=== PATIENT | female | born 2000 | race Caucasian/White ===

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

== ENCOUNTER 2020-12-10 18:56 | Emergency (ER) | payer OTHER, SELFPAY ==
[2020-12-10 19:20] VITALS: BP 144/83; PULSE 117; RESP 20; TEMP 36.9; O2SAT 96; BMI 47.5
[2020-12-10 19:49] LABS: UTC Strep Screen (Rapid) Positive (Negative)
--- NOTE | 2020-12-10 19:49 | HMH.EDUTC ---
[facility] [place] Clinical Impression: Strep throat Disposition: Home, Self-Care Condition on Discharge: Good Instructions: DI for Strep Throat Additional Instructions: Drink plenty of fluids. Take tylenol or ibuprofen for pain or fever. Take the medications as directed. Follow up with your regular doctor. GO TO THE ER FOR ANY WORSENING SYMPTOMS Prescriptions: Brompheniramine/Pseudoephed/Dm [Bromfed Dm Cough Syrup] 5 ml PO Q6HP PRN #240 syrup PRN Reason: Cough Transmission Status: Received by [id number] predniSONE [Deltasone 10mg tablet] 10 mg PO BID 3 Days #6 tab Transmission Status: Received by [id number] Azithromycin [Z-Regino 250mg Tab*] 250 mg PO UD DOSE PK #6 tab Transmission Status: Received by [id number] Referrals: Shawn Ureña APRN [Primary Care Provider] - Forms: Work/School Release Time of Disposition: 20:04 Medical Decision Making - Medical Records Medical records reviewed: No: I reviewed the patient's medical records. - Foster Inquiry Pt receiving controlled substance: No Vital Signs: 12/10/20 19:20 12/10/20 19:57 Temperature 98.4 F 98.4 F Temperature Source Oral Pulse Rate 117 H Pulse Rate [Right Brachial] 117 H Respiratory Rate 20 20 Blood Pressure 144/83 H Blood Pressure [Right Arm] 144/83 H Blood Pressure Mean [Right Arm] 103 Blood Pressure Source [Right Arm] Automatic Cuff Blood Pressure Position [Right Arm] Sitting 02 Sat by Pulse Oximetry 96 Oxygen Delivery Method Room Air - Lab Data Lab results reviewed: Yes: I reviewed the patient's lab results. Lab Results 12/10/20 19:48: Strep Scn [facility] Positive A Orders (Tests/Meds): ED MEDICATIONS Discontinued Medications Generic Name Dose Route Start Last Admin Trade Name Freq PRN Reason Stop Dose Admin Azithromycin 500 mg 12/10/20 19:52 12/10/20 19:56 Azithromycin 250mg Tablet PO 12/10/20 19:53 500 mg ONCE ONE Administration Protocol Prednisone 20 mg 12/10/20 19:52 12/10/20 19:56 Prednisone 20mg Tab PO 12/10/20 19:53 20 mg ONCE ONE Administration [facility] [place] - General Stated complaint: Sore Throat, runny nose body aches Time Seen by Provider: 12/10/20 19:49 Mode of Arrival: Ambulatory Source of Information: Patient Limitations: No Limitations Description of Symptoms (Recalled from Triage Doc. by RN): PATIENT C/O SORE THROAT, SWOLLEN TONSILS, HEADACHE, BODY ACHES, COUGH AND SNEEZING X 2-3 DAYS HEENT Symptoms (Recalled from RN notes): Yes Resp Symptoms (Recalled from RN notes): Yes Skin Symptoms (Recalled from RN notes): No MS Symptoms (Recalled from RN notes): No Functional Status (Recalled from RN notes): WNL - History of Present Illness Provider Complaint: She c/o sore throat for the past 2 days. She has a history of getting strep throat easily. - Related Data Home Medications Medication Instructions Recorded Confirmed Sertraline HCl [Zoloft 100mg 100 mg PO DAILY 12/10/20 12/10/20 tablet] Previous Rx's Medication Instructions Recorded Azithromycin [Z-Regino 250mg Tab*] 250 mg PO UD DOSE PK #6 tab 12/10/20 Brompheniramine/Pseudoephed/Dm 5 ml PO Q6HP PRN #240 syrup 12/10/20 [Bromfed Dm Cough Syrup] predniSONE [Deltasone 10mg tablet] 10 mg PO BID 3 Days #6 tab 12/10/20 Allergies Allergy/AdvReac Type Severity Reaction Status Date / Time amoxicillin [From AUGMENTIN] Allergy Unknown STOMACH Verified 12/20/18 15:19 cephalexin [From KEFLEX] Allergy Unknown Verified 12/20/18 15:19 clavulanic acid Allergy Unknown STOMACH Verified 12/20/18 15:19 [From AUGMENTIN] - Worker's Comp Is this a Worker's Comp case?: No [facility] History - Hepatitis A Screen Drug use history?: No High risk sexual behaviors?: No History of sexually transmitted infection?: No Currently employed?: No Childcare worker?: No Do you have indoor plumbing?: Yes Do you have electricity?: Yes Attestation statement:: This
[2020-12-10 19:57] VITALS: BP 144/83; PULSE 117; RESP 20; TEMP 36.9; O2SAT 96
== END 2020-12-10 20:08 | disposition home or self-care (01) ==
PROVIDERS: Emergency Provider Nurse Practitioner Family; PCP Nurse Practitioner Family
DX: J02.0 Streptococcal pharyngitis (principal); F33.1 Major depressive disorder, recurrent, moderate; Z88.1 Allergy status to other antibiotic agents; Z79.899 Other long term (current) drug therapy
CPT/HCPCS: 87880; 99202; G0463

== ENCOUNTER 2022-03-10 13:11 | Emergency (ER) | payer OTHER, SELFPAY ==
[2022-03-10 15:01] VITALS: BP 0/0; PULSE 0; RESP 0; TEMP -17.7; TEMP 0
== END 2022-03-10 15:03 | disposition left against medical advice (07) ==
LOC: UTC 13:15
PROVIDERS: Emergency Provider Nurse Practitioner; PCP Physician Assistant
DX: Z53.21 Procedure and treatment not carried out due to patient leaving prior to being seen by health care provider (principal)

== ENCOUNTER 2022-03-14 18:39 | Emergency (ER) | payer OTHER, SELFPAY ==
[2022-03-14 18:40] VITALS: BP 148/79; PULSE 127; RESP 16; TEMP 38; O2SAT 97; BMI 49.4
--- NOTE | 2022-03-14 18:55 | XR_ITS ---
PROCEDURE INFORMATION: Exam: XR Chest Exam date and time: 03/14/2022 7:27 PM Age: 21 years old Clinical indication: Fever and other: Body aches; Additional info: Fever body aches TECHNIQUE: Imaging protocol: Radiologic exam of the chest. Views: 2 views. COMPARISON: CR CXR CHEST(2 VIEWS-NOT PORTABLE) 08/14/2015 8:04 PM FINDINGS: Lungs: No acute airspace consolidation. No appreciable pulmonary edema. Pleural spaces: No pleural effusion. No pneumothorax. Heart/Mediastinum: Cardiomediastinal silouhette is within normal limits. Bones/joints: No acute osseous abnormality. IMPRESSION: No acute findings. No evidence of pneumonia.
[2022-03-14 19:01] LABS: Influenza A, PCR Not Detected (NotDetected); Influenza B, PCR Not Detected (NotDetected)
[2022-03-14 19:30] LABS: Urine Pregnancy, HCG Qual. Negative (Negative)
--- NOTE | 2022-03-14 19:35 | HMH.EDGENADL ---
Discharge Plan Disposition Patient Disposition: Home, Self-Care Condition: Good Prescriptions Prescriptions: New Paxlovid (EUA) 300 mg (150 mg x 2)-100 mg tablets,dose pack See Rx Instructions .Route .COMPLEX Qty: 30 0RF Rx Instructions: take TWO 150 mg tablets of nirmatrelvir with ONE 100 mg tablet of ritonavir twice daily for 5 days No Action sertraline 100 MG tablet 100 mg PO DAILY prednisone 10 MG tablet 10 mg PO BID 3 Days Qty: 6 0RF azithromycin 250 MG tablet 250 mg PO UD DOSE PK Qty: 6 0RF Rx Instructions: Take two (2) tablets today, then one (1) tablet days #2 thru #5 [id number]-qzagdythn-AV 118 ML syrup 5 ml PO Q6HP PRN (Reason: Cough) Qty: 240 0RF Referrals Follow up/Referrals: Josef Godfrey PA [Primary Care Provider] - See instructions Activity Restrictions/Add. Instructions Additional Instructions/Restrictions: ADDITIONAL INSTRUCTIONS FOR COVID-19: Rest, drink plenty of fluids. Tylenol or Ibuprofen for fever and/or aches and pains. Monitor your symptoms. IF YOU HAVE AN EMERGENCY WARNING SIGN (INCLUDING TROUBLE BREATHING), SEEK EMERGENCY MEDICAL CARE IMMEDIATELY. COVID-19 Isolation: People with COVID-19 should isolate for 5 days. Then if they are asymptomatic (no symptoms) or their symptoms are resolving (without fever for 24 hours), follow that by 5 days of wearing a mask when around others to minimize the risk of infecting people you encounter. If you test positive for COVID-19 and never develop symptoms, day 0 is the day of your positive viral test (based on the date you were tested) and day 1 is the first full day after your positive test. If you develop symptoms after testing positive, your 5-day isolation period must start over. Day 0 is your first day of symptoms. Day 1 is the first full day after your symptoms developed. What to do: Stay in a separate room from other household members, if possible. Use a separate bathroom, if possible. Avoid contact with other members of the household and pets. Don?t share personal household items, like cups, towels, and utensils. Wear a mask when around other people if able. Clinical Impressions Clinical Impression: COVID-19 virus infection Discharge ED Provider: Wilfred Jarrell General Adult HPI General Chief complaint: Upper Respiratory Infection Stated complaint: chills,sore throat, body aches Time Seen by Provider: 03/14/22 19:25 Mode of Arrival: Ambulatory Source of Information: Patient Limitations: No Limitations Description of Symptoms (Recalled from ER Triage Doc. by RN): pt c/o sore throat, body aches, chills, fever that started today, History of Present Illness HPI narrative: States she woke up this morning with generalized body aches and chills. Fevers. Tonsils are enlarged and sore throat. Mild cough. Denies rhinorrhea, vomiting, diarrhea. Denies any exposure to any illnesses including COVID-19. She has been vaccinated against COVID-19. She says her tonsils are always enlarged and are supposed to be taken out. She gets frequent strep throat, but says she does not normally get body aches like this with it. She took 2 doses of Tylenol at home today. Related Data Home Medications Medication Instructions Recorded Confirmed sertraline 100 mg tablet 100 mg PO DAILY Depression 12/10/20 12/10/20 Previous Rx's Medication Instructions Recorded azithromycin 250 mg tablet 250 mg PO UD DOSE PK #6 tabs 12/10/20 [id number]-FT 5 ml PO Q6HP PRN Cough ##240 12/10/20 2 mg-30 mg-10 mg/5 mL oral syrup prednisone 10 mg tablet 10 mg PO BID 3 days #6 tabs 12/10/20 nirmatrelvir 300 mg (150 mg See Rx Instructions .Route 03/14/22 x2)-ritonavir 100 mg tablet,dose .COMPLEX #30 tabs pack(EUA) (Paxlovid) Allergies Allergy/AdvReac Type Severity Reaction Status Date / Time amoxicillin [From AUGMENTIN] Allergy Unknown STOMACH Verified 12/20/18 15:19 cephalexin [From K
[2022-03-14 19:48] LABS: Coronavirus 19, PCR Detected (NotDetected)
[2022-03-14 19:52] LABS: Strep Scrn Group A (Rapid) Negative (Negative)
[2022-03-14 20:20] VITALS: BP 137/83; PULSE 118; RESP 16; TEMP 37.2; O2SAT 97
== END 2022-03-14 20:25 | disposition home or self-care (01) ==
PROVIDERS: Emergency Provider Emergency Medicine; PCP Physician Assistant
DX: J06.9 Acute upper respiratory infection, unspecified (principal); J02.9 Acute pharyngitis, unspecified; J35.1 Hypertrophy of tonsils; R06.02 Shortness of breath; R05.9 Cough, unspecified; M79.10 Myalgia, unspecified site; Z79.52 Long term (current) use of systemic steroids; Z79.899 Other long term (current) drug therapy; Z88.0 Allergy status to penicillin; Z88.1 Allergy status to other antibiotic agents; Z88.3 Allergy status to other anti-infective agents; Z88.8 Allergy status to other drugs, medicaments and biological substances
CPT/HCPCS: 71046; 81025; 87430; 99283; C9803; U0003; U0005

== ENCOUNTER 2022-08-18 17:36 | Emergency (ER) | payer OTHER, SELFPAY ==
[2022-08-18 17:37] VITALS: BP 166/83; PULSE 113; RESP 18; TEMP 36.8; O2SAT 100; BMI 49.4
--- NOTE | 2022-08-18 17:39 | HMH.EDGENADL ---
Discharge Plan Disposition Patient Disposition: Home, Self-Care Prescriptions Prescriptions: New ondansetron HCl 4 mg tablet 4 mg PO Q6H PRN (Reason: nausea and vomiting) 5 Days Qty: 20 0RF No Action sertraline 100 MG tablet 100 mg PO DAILY prednisone 10 MG tablet 10 mg PO BID 3 Days Qty: 6 0RF azithromycin 250 MG tablet 250 mg PO UD DOSE PK Qty: 6 0RF Rx Instructions: Take two (2) tablets today, then one (1) tablet days #2 thru #5 [id number]-kcnjhzajr-MC 118 ML syrup 5 ml PO Q6HP PRN (Reason: Cough) Qty: 240 0RF Paxlovid (EUA) 300 mg (150 mg x 2)-100 mg tablets,dose pack See Rx Instructions .Route .COMPLEX Qty: 30 0RF Rx Instructions: take TWO 150 mg tablets of nirmatrelvir with ONE 100 mg tablet of ritonavir twice daily for 5 days Activity Restrictions/Add. Instructions Additional Instructions/Restrictions: Please return if you are unable to tolerate p.o. if your abdominal pain significantly worsens. Clinical Impressions Clinical Impression: Nausea vomiting and diarrhea Instructions Patient Instructions: DI for Diarrhea and Traveler's Diarrhea -- Adult, DI for Diarrhea and Traveler's Diarrhea -- Child, DI for Nausea -- Adult, DI for Nausea -- Child Discharge ED Provider: Len Moreno Adult HPI General Chief complaint: Nausea/Vomiting/Diarrhea Stated complaint: Vomitting,Weakness,Diarrhea Time Seen by Provider: 08/18/22 17:39 History of Present Illness HPI narrative: Patient is a 21-year-old female presenting with nausea vomiting diarrhea. Has had 8 episodes of vomiting and diarrhea since noon today. Had oral disintegrating Zofran at home however was unable to tolerate that. Has mild abdominal cramping that is intermittent and nonfocal in nature. Denies any bladder fever in her vomit or her diarrhea. No pain right now. Related Data Home Medications Medication Instructions Recorded Confirmed sertraline 100 mg tablet 100 mg PO DAILY Depression 12/10/20 12/10/20 Previous Rx's Medication Instructions Recorded azithromycin 250 mg tablet 250 mg PO UD DOSE PK #6 tabs 12/10/20 swdlpnuxzxmtbrm-gmezchdxznawela-CS 5 ml PO Q6HP PRN Cough ##240 12/10/20 2 mg-30 mg-10 mg/5 mL oral syrup prednisone 10 mg tablet 10 mg PO BID 3 days #6 tabs 12/10/20 nirmatrelvir 300 mg (150 mg See Rx Instructions .Route 03/14/22 x2)-ritonavir 100 mg tablet,dose .COMPLEX #30 tabs pack(EUA) (Paxlovid) ondansetron HCl 4 mg tablet 4 mg PO Q6H PRN nausea and 08/18/22 vomiting 5 days #20 tabs Allergies Allergy/AdvReac Type Severity Reaction Status Date / Time amoxicillin [From AUGMENTIN] Allergy Unknown STOMACH Verified 12/20/18 15:19 cephalexin [From KEFLEX] Allergy Unknown Verified 12/20/18 15:19 clavulanic acid Allergy Unknown STOMACH Verified 12/20/18 15:19 [From AUGMENTIN] [facility] Disclaimer: The information contained in this section may have been updated after the patient was seen, as this information can be updated by other users. Social History Smoking Status: Never smoker alcohol intake: never substance use type: denies use current occupational status: other Travel in the last 8 weeks: None ROS Obtained: Yes All systems reviewed & no additional complaints except as documented Physical Exam General General appearance: alert and in no apparent distress Head Head exam: atraumatic and normocephalic Eye Eye exam: Present normal appearance ENT ENT exam: Present normal exam Chest Chest inspection: Present normal inspection and symmetric chest wall rise Respiratory Respiratory exam: Present normal lung sounds bilaterally; Absent respiratory distress Cardiovascular Cardiovascular exam: Present regular rate, tachycardia and other (Delayed capillary refill throughout) Abdominal Exam Abdominal exam: Present soft; Absent distention, tenderness, guarding, rebound, rigidity or hyperactive bowel sounds Neurological Exam Neurological
--- NOTE | 2022-08-18 17:45 | PC.NURSE ---
1621 ed md at bedside for evaluation
--- NOTE | 2022-08-18 18:19 | PC.NURSE ---
ED MD AT BEDSIDE TO REEVALUATE PT
[2022-08-18 18:36] LABS: Chloride 107 mmol/L (98-107); Potassium 4.3 mmoL/L (3.5-5.1); Sodium 140 mmol/L (136-145)
[2022-08-18 18:39] LABS: Blood Urea Nitrogen 14 mg/dl (7-17); Creatinine Clearance Estimated 100 mL/min (50-200); Estimated Glomerular Filt Rate 105 ml/min (>60); GFR (African American) 127 ML/MIN (>60)
[2022-08-18 18:40] LABS: Anion Gap 12.3 mEq/L (5-15); Calcium 8.5 mg/dl (8.4-10.2); Carbon Dioxide 25 mmol/L (22.0-30.0); Glucose 103 mg/dl (74-100)
--- NOTE | 2022-08-18 18:44 | PC.NURSE ---
WATER GIVEN TO PT AT THIS TIME
[2022-08-18 19:00] VITALS: BP 118/74; PULSE 87; RESP 17; TEMP 36.7; O2SAT 100
== END 2022-08-18 19:05 | disposition home or self-care (01) ==
PROVIDERS: Emergency Provider Student in an Organized Health Care Education/Training Program; PCP Physician Assistant
DX: R11.2 Nausea with vomiting, unspecified (principal); R19.7 Diarrhea, unspecified
CPT/HCPCS: 80048; 96361; 96374; 99284; J2405

== ENCOUNTER 2022-09-22 13:39 | Emergency (ER) | payer OTHER, SELFPAY ==
[2022-09-22 14:10] VITALS: BP 131/84; PULSE 92; RESP 16; TEMP 37.2; O2SAT 96; BMI 49.9
[2022-09-22 14:25] LABS: UTC Strep Screen (Rapid) Negative (Negative)
--- NOTE | 2022-09-22 14:42 | EXP.UTC ---
Discharge Plan Disposition Patient Disposition: Home, Self-Care Condition: Good Prescriptions Prescriptions: New benzonatate 100 mg capsule 100 mg PO TID PRN (Reason: cough) Qty: 30 0RF azithromycin [Zithromax Z-Regino] 250 mg tablet See Rx Instructions .ROUTE .COMPLEX 5 Days Qty: 6 0RF Rx Instructions: For 250 mg dose pack: take 500 mg today (day 1), then 250 mg for 4 days (days 2-5) methylprednisolone [Medrol (Regino)] 4 mg tablets,dose pack See Rx Instructions .Route .COMPLEX 6 Days Qty: 21 0RF Rx Instructions: taper pack; No Action sertraline 100 MG tablet 100 mg PO DAILY prednisone 10 MG tablet 10 mg PO BID 3 Days Qty: 6 0RF azithromycin 250 MG tablet 250 mg PO UD DOSE PK Qty: 6 0RF Rx Instructions: Take two (2) tablets today, then one (1) tablet days #2 thru #5 xyrmasuajgzvbmm-ykwpudvdr-IH 118 ML syrup 5 ml PO Q6HP PRN (Reason: Cough) Qty: 240 0RF Paxlovid (EUA) 300 mg (150 mg x 2)-100 mg tablets,dose pack See Rx Instructions .Route .COMPLEX Qty: 30 0RF Rx Instructions: take TWO 150 mg tablets of nirmatrelvir with ONE 100 mg tablet of ritonavir twice daily for 5 days ondansetron HCl 4 mg tablet 4 mg PO Q6H PRN (Reason: nausea and vomiting) 5 Days Qty: 20 0RF Referrals Follow up/Referrals: Provider,Referral, MD [Primary Care Provider] - See instructions Activity Restrictions/Add. Instructions Additional Instructions/Restrictions: *Monitor Temp, Over the counter Motrin or Tylenol as directed/as needed Tylenol every 4 hours and Motrin every 6 hours (as long as your family doctor has told you that you can take it) for fever or pain. and straight to ER if unable to lower temp less than 101.0 after medication given *Warm salt water gargles may help to soothe the throat *Throat Lozenges? *Warm fluids like tea with honey may help to soothe the throat? *Sleep elevated *Humidifier/Vaporizer Your throat swab was sent for culture. Those results are typically sent to your primary care. Be sure to follow up in 2-3 days with your family doctor/primary care physician if no improvement so they can review those result and treat if necessary. If you don?t have a primary care doctor, I recommend you get one but in the mean time, you will have to return to a walk in clinic Follow up IMMEDIATELY for new or worsening symptoms or no Noticeable improvement over the next 48-72 hours. 911 for difficulty breathing or swallowing Clinical Impressions Clinical Impression: Sinusitis Stand Alone Forms Stand Alone Forms: Work/School Release Instructions Patient Instructions: DI for Sinusitis, Sinusitis Discharge ED Provider: Jennifer Rapp [facility] HPI General Stated complaint: sore throat, cough, congestion, runny nose Mode of Arrival: Ambulatory Source of Information: Patient Limitations: No Limitations Time Seen by Provider: 09/22/22 14:42 Description of Symptoms (Recalled from Triage Doc. by RN): PATIENT C/O COUGH, SWOLLEN TONSILS, SINUS PAIN, RUNNY NOSE, AND FATIGUE X 2-3 DAYS HEENT Symptoms (Recalled from RN notes): Yes Resp Symptoms (Recalled from RN notes): Yes Skin Symptoms (Recalled from RN notes): No MS Symptoms (Recalled from RN notes): No Functional Status (Recalled from RN notes): WNL History of Present Illness Provider Complaint: Patient states that she has been having sinus congestion and pressure for about 5 days but for the last 3-4 days it has got worse States that she is having sore throat, swollen tonsils, nasal congestion, and headache along with tired an achy States that today she was feeling worse so she came in to get checked Related Data Home Medications Medication Instructions Recorded Confirmed sertraline 100 mg tablet 100 mg PO DAILY Depression 12/10/20 12/10/20 Previous Rx's Medication Instructions Recorded azithromycin 250 mg tablet 250 mg PO UD DOSE PK #6 tabs 12/10/20 brompheniramine-pseudoephe
[2022-09-22 15:06] VITALS: BP 131/84; PULSE 92; RESP 16; TEMP 37.2
== END 2022-09-22 15:06 | disposition home or self-care (01) ==
PROVIDERS: Emergency Provider Nurse Practitioner
DX: J01.90 Acute sinusitis, unspecified (principal); R05.1 Acute cough; R07.0 Pain in throat
CPT/HCPCS: 87880; 99212; 99214; G0463

== ENCOUNTER 2023-05-18 00:03 | Emergency (ER) | payer OTHER, SELFPAY ==
[2023-05-18 00:06] VITALS: BP 152/100; PULSE 103; RESP 20; TEMP 36.7; O2SAT 98; BMI 48.4
[2023-05-18 00:16] VITALS: BMI 36.6
--- NOTE | 2023-05-18 00:20 | HMH.EDGENADL ---
Discharge Plan Disposition Patient Disposition: Home, Self-Care Condition: Good Chief Complaint: Neck Pain/Injury Prescriptions Prescriptions: No Action sertraline 100 MG tablet 100 mg PO DAILY prednisone 10 MG tablet 10 mg PO BID 3 Days Qty: 6 0RF azithromycin 250 MG tablet 250 mg PO UD DOSE PK Qty: 6 0RF Rx Instructions: Take two (2) tablets today, then one (1) tablet days #2 thru #5 omawbsgmiphatfb-dokarlmwo-ZX 118 ML syrup 5 ml PO Q6HP PRN (Reason: Cough) Qty: 240 0RF Paxlovid 300 mg (150 mg x 2)-100 mg tablets,dose pack See Rx Instructions .Route .COMPLEX Qty: 30 0RF Rx Instructions: take TWO 150 mg tablets of nirmatrelvir with ONE 100 mg tablet of ritonavir twice daily for 5 days ondansetron HCl 4 mg tablet 4 mg PO Q6H PRN (Reason: nausea and vomiting) 5 Days Qty: 20 0RF benzonatate 100 mg capsule 100 mg PO TID PRN (Reason: cough) Qty: 30 0RF azithromycin [Zithromax Z-Regino] 250 mg tablet See Rx Instructions .ROUTE .COMPLEX 5 Days Qty: 6 0RF Rx Instructions: For 250 mg dose pack: take 500 mg today (day 1), then 250 mg for 4 days (days 2-5) methylprednisolone [Medrol (Regino)] 4 mg tablets,dose pack See Rx Instructions .Route .COMPLEX 6 Days Qty: 21 0RF Rx Instructions: taper pack; Referrals Follow up/Referrals: Provider,Referral, MD [Primary Care Provider] - See instructions Activity Restrictions/Add. Instructions Additional Instructions/Restrictions: You have been evaluated in the ED for your complaints. You may follow-up with your PCP in the next 3 to 5 days. Please return to ED for any new or worsening symptoms. Clinical Impressions Clinical Impression: LAD (lymphadenopathy) of right cervical region Instructions Patient Instructions: DI for Lymphadenopathy Discharge ED Provider: Niko Gay Adult HPI General Chief complaint: Neck Pain/Injury Stated complaint: Lump on right side of neck Time Seen by Provider: 05/18/23 00:08 Mode of Arrival: Ambulatory Source of Information: Patient Limitations: No Limitations Description of Symptoms (Recalled from ER Triage Doc. by RN): 2 days ago noted knot and pain to right side of neck/jaw line area. pt denies any recent sickness or fevers History of Present Illness HPI narrative: 22-year-old female with past medical history significant for hypothyroidism, PCOS, scoliosis, presents today for evaluation concerning lump on the right side of the neck that has been present over the past 2 days. Patient states that she has been having some pain as well. Has had no difficulty with tolerating oral intake. Has not had any fevers, chills, chest pain, cough, congestion, sore throat, shortness of breath, nausea, vomiting or any other associated symptoms. She states that she does deal with allergies. Related Data Home Medications Medication Instructions Recorded Confirmed sertraline 100 mg tablet 100 mg PO DAILY Depression 12/10/20 12/10/20 Previous Rx's Medication Instructions Recorded azithromycin 250 mg tablet 250 mg PO UD DOSE PK #6 tabs 12/10/20 wcfmfwztlvecxbo-yuiiddbelvdruzr-YO 5 ml PO Q6HP PRN Cough ##240 12/10/20 2 mg-30 mg-10 mg/5 mL oral syrup prednisone 10 mg tablet 10 mg PO BID 3 days #6 tabs 12/10/20 nirmatrelvir 300 mg (150 mg See Rx Instructions .Route 03/14/22 x2)-ritonavir 100 mg tablet,dose .COMPLEX #30 tabs pack (Paxlovid) ondansetron HCl 4 mg tablet 4 mg PO Q6H PRN nausea and 08/18/22 vomiting 5 days #20 tabs azithromycin 250 mg tablet See Rx Instructions PO .COMPLEX 5 09/22/22 (Zithromax Z-Regino) days #6 tabs benzonatate 100 mg capsule 100 mg PO TID PRN cough #30 caps 09/22/22 methylprednisolone 4 mg tablets in See Rx Instructions .Route 09/22/22 a dose pack (Medrol (Regino)) .COMPLEX 6 days #21 tabs Allergies Allergy/AdvReac Type Severity Reaction Status Date / Time amoxicillin [From AUGMENTIN] Allergy Unknown STOMACH Verified 12/20/18 15:19 cephalex
[2023-05-18 00:26] LABS: Coronavirus 19, PCR Not Detected (NotDetected); Influenza A, PCR Not Detected (NotDetected); Influenza B, PCR Not Detected (NotDetected)
[2023-05-18 00:57] VITALS: BP 151/88; PULSE 103; RESP 20; TEMP 36.7; O2SAT 98
== END 2023-05-18 00:58 | disposition home or self-care (01) ==
PROVIDERS: Emergency Provider Emergency Medicine
DX: L04.0 Acute lymphadenitis of face, head and neck (principal); E03.9 Hypothyroidism, unspecified; M41.9 Scoliosis, unspecified
CPT/HCPCS: 87636; 99283

== ENCOUNTER 2023-10-18 11:31 | Emergency (ER) | payer OTHER, SELFPAY ==
[2023-10-18 11:40] VITALS: BP 151/98; PULSE 90; RESP 18; TEMP 37; O2SAT 96; BMI 50.7
--- NOTE | 2023-10-18 11:45 | ED_ITS ---
Discharge Plan Disposition Patient Disposition: Home, Self-Care Condition: Good Prescriptions Prescriptions: New azithromycin [Zithromax] 250 mg tablet 250 mg PO UD DOSE PK Qty: 6 0RF Rx Instructions: Take two (2) tablets today, then one (1) tablet days #2 thru #5 methylprednisolone 4 mg Tablets,Dose Pack 4 mg PO DIRECTED 6 Days Qty: 21 0RF Rx Instructions: Take 1 pack as directed for 6 days wuzwercsvkoyjcw-adijjvrba-LO [Bromfed DM] 2-30-10 mg/5 mL Syrup 5 ml PO Q6H PRN (Reason: Cough) Qty: 240 0RF No Action metformin 500 mg tablet extended release 24 hr 500 mg PO DAILY Patient Comments: TAKE 1 TABLET BY MOUTH ONCE DAILY WITH BREAKFAST Referrals Follow up/Referrals: Josef Yung PA [Primary Care Provider] - See instructions Activity Restrictions/Add. Instructions Additional Instructions/Restrictions: Drink plenty of fluids. Take tylenol or ibuprofen for pain or fever. Take the medications as directed. Follow up with your regular doctor. GO TO THE ER FOR ANY WORSENING SYMPTOMS Clinical Impressions Clinical Impression: Pharyngitis Instructions Patient Instructions: Sore Throat, DI for Pharyngitis/Tonsillopharyngitis -- Adult Discharge ED Provider: Garcia Almendarez [facility] General Stated complaint: swollen tonsils, sore throat headache Time Seen by Provider: 10/18/23 11:45 History of Present Illness Provider Complaint: She states that for the past 2 days she has had fever, cough, poor appetite and sore throat. Related Data Home Medications Medication Instructions Recorded Confirmed metformin 500 mg tablet,extended 500 mg PO DAILY 10/18/23 10/18/23 release 24 hr Previous Rx's Medication Instructions Recorded azithromycin 250 mg tablet 250 mg PO UD DOSE PK #6 tabs 10/18/23 (Zithromax) gmsqxsiwndprtvh-fyalbilctnejxww-XP 5 ml PO Q6H PRN Cough #240 mL 10/18/23 2 mg-30 mg-10 mg/5 mL oral syrup (Bromfed DM) methylprednisolone 4 mg tablets in 4 mg PO DIRECTED 6 days #21 tabs 10/18/23 a dose pack Allergies Allergy/AdvReac Type Severity Reaction Status Date / Time amoxicillin [From AUGMENTIN] Allergy Unknown STOMACH Verified 10/18/23 11:52 cephalexin [From KEFLEX] Allergy Unknown Verified 10/18/23 11:52 clavulanic acid Allergy Unknown STOMACH Verified 10/18/23 11:52 [From AUGMENTIN] [facility] Disclaimer: The information contained in this section may have been updated after the patient was seen, as this information can be updated by other users. Social History Smoking Status: Never smoker alcohol intake: never substance use type: denies use current occupational status: other Travel in the last 8 weeks: None ROS Obtained: Yes All systems reviewed & no additional complaints except as documented Constitutional Constitutional: Reports chills and Reports fever(s) Eyes Eyes: Denies eye discharge ENT Ears, Nose, Mouth, and Throat: Reports as per HPI Cardiovascular Cardiovascular: Denies chest pain Respiratory Respiratory: Denies chest congestion and Reports cough Gastrointestinal Gastrointestingal: Reports nausea; Denies abdominal pain, constipation, cramping, diarrhea or vomiting Musculoskeletal Musculoskeletal: Denies arthralgias Integumentary/Breasts Skin/Breast: Denies rash Neurologic Neurologic: Denies paresthesias Physical Exam General General appearance: alert and in no apparent distress Head Head exam: atraumatic, normocephalic and normal inspection Eye Eye exam: Present normal appearance, PERRL and EOMI ENT ENT exam: Present mucous membranes moist and normal external ear exam Expanded ENT Exam TM/Canal exam: Bilateral TM: erythema and bulging Nose exam: Absent sinus tenderness Mouth exam: Present normal external inspection; Absent drooling Teeth exam: Present normal inspection Throat exam: Present tonsillar erythema, tonsillomegaly and tonsillar exudate Neck Neck exam: Present normal inspection, full ROM and trachea midline; Absent tenderness, meningismus or lymphadenopathy Chest Chest inspection: Present normal inspection and symmetric chest wall rise; Absent tenderness Respiratory Respiratory exam: Present normal lung sounds bilaterally; Absent respiratory distress, wheezes or stridor Cardiovascular Cardiovascular exam: Present regular rate and normal rhythm; Absent systolic murmur or diastolic murmur Abdominal Exam Abdominal exam: Present soft and normal bowel sounds; Absent distention, tenderness, guarding, rebound or rigidity Extremities Exam Extremities exam: Present normal inspection and normal capillary refill; Absent calf tenderness Back Exam Back exam: Present normal inspection and full ROM; Absent tenderness, CVA tenderness (R) or CVA tenderness (L) Neurological Exam Neurological exam: Present alert, oriented X3 and CN II-XII intact Psychiatric Psychiatric exam: Present normal affect and normal mood Skin Skin exam: Present warm, dry, intact and normal color Medical Decision Making Medical Records Medical records reviewed: No I reviewed the patient's medical records. Foster Inquiry Pt receiving controlled substance: No Lab Data Lab results reviewed: Yes I reviewed the patient's lab results.
[2023-10-18 12:10] LABS: UTC Strep Screen (Rapid) Negative (Negative)
[2023-10-18 12:20] VITALS: BP 151/98; PULSE 90; RESP 18; TEMP 37; O2SAT 96
== END 2023-10-18 12:20 | disposition home or self-care (01) ==
PROVIDERS: Emergency Provider Nurse Practitioner Family; PCP Physician Assistant
DX: J02.9 Acute pharyngitis, unspecified (principal); R50.9 Fever, unspecified; R05.9 Cough, unspecified
CPT/HCPCS: 87880; 99212; 99214; G0463

== ENCOUNTER 2024-01-04 08:55 | Emergency (ER) | payer OTHER, SELFPAY ==
[2024-01-04 09:00] VITALS: BP 148/92; PULSE 91; RESP 18; TEMP 36.6; O2SAT 97; BMI 49.4
[2024-01-04 09:26] LABS: UTC Strep Screen (Rapid) Negative (Negative)
--- NOTE | 2024-01-04 09:51 | EXP.UTC ---
Discharge Plan Disposition Patient Disposition: Home, Self-Care Condition: Good Prescriptions Prescriptions: New azithromycin 500 mg tablet 500 mg PO DAILY 5 Days Qty: 5 0RF No Action metformin 500 mg tablet extended release 24 hr 500 mg PO DAILY Patient Comments: TAKE 1 TABLET BY MOUTH ONCE DAILY WITH BREAKFAST Referrals Follow up/Referrals: Josef Yung PA [Primary Care Provider] - See instructions Activity Restrictions/Add. Instructions Additional Instructions/Restrictions: make sure that you take it for the FULL length of time although you should start to feel better in 24-48 hours *change toothbrush and toothpaste 24-48 hours after starting to take antibiotics so you do not reinfect yourself Monitor Temp. Tylenol and/or Ibuprofen as needed. ER if fever is no less than 101 despite alternating Tylenol and Ibuprofen * Encourage fluids, water, Gatorade, powerade, pedialyte if /toddler/or child *Cold fluids, popsicles and ice cream may feel good on his throat * Clinical Impressions Clinical Impression: Pharyngitis Qualifiers: Pharyngitis/tonsillitis etiology: unspecified etiology Qualified Code(s): J02.9 - Acute pharyngitis, unspecified Instructions Patient Instructions: DI for Pharyngitis/Tonsillopharyngitis -- Adult Discharge ED Provider: Yennifer Herrera [facility] General Stated complaint: sore throat, swollen tonsils Mode of Arrival: Ambulatory Source of Information: Patient Limitations: No Limitations Time Seen by Provider: 01/04/24 09:51 Description of Symptoms (Recalled from Triage Doc. by RN): Pt's symptoms are swollen tonsils, sore throat, drainage, and ROMAN. HEENT Symptoms (Recalled from RN notes): Yes Resp Symptoms (Recalled from RN notes): No Skin Symptoms (Recalled from RN notes): No MS Symptoms (Recalled from RN notes): No Functional Status (Recalled from RN notes): n/a History of Present Illness Provider Complaint: Pt reports feeling poorly for the last couple of days. She states that her throat is very sore and her grandmother has strep currently. Related Data Home Medications Medication Instructions Recorded Confirmed metformin 500 mg tablet,extended 500 mg PO DAILY 10/18/23 01/04/24 release 24 hr Previous Rx's Medication Instructions Recorded azithromycin 500 mg tablet 500 mg PO DAILY 5 days #5 tabs 01/04/24 Allergies Allergy/AdvReac Type Severity Reaction Status Date / Time amoxicillin [From AUGMENTIN] Allergy Unknown STOMACH Verified 01/04/24 09:21 cephalexin [From KEFLEX] Allergy Unknown Verified 01/04/24 09:21 clavulanic acid Allergy Unknown STOMACH Verified 01/04/24 09:21 [From AUGMENTIN] Worker's Comp Is this a Worker's Comp case?: No [facility] Disclaimer: The information contained in this section may have been updated after the patient was seen, as this information can be updated by other users. Social History Smoking Status: Never smoker alcohol intake: never substance use type: denies use current occupational status: other Travel in the last 8 weeks: None ROS Obtained: Yes All systems reviewed & no additional complaints except as documented Constitutional Constitutional: Reports system reviewed and no additional complaints, except as documented and Reports malaise Eyes Eyes: Reports system reviewed and no additional complaints, except as documented ENT Ears, Nose, Mouth, and Throat: Reports system reviewed and no additional complaints, except as documented, Reports odynophagia and Reports sore throat Cardiovascular Cardiovascular: Reports system reviewed and no additional complaints, except as documented Respiratory Respiratory: Reports system reviewed and no additional complaints, except as documented Gastrointestinal Gastrointestingal: Reports system reviewed and no additional complaints, except as documented and odynophagia Genitourinary Female Genitourinary: Reports system reviewed and no additional complaints, except as documented Musculoskeletal Musculoskeletal: Reports system reviewed and no additional complaints, except as documented Integumentary/Breasts Skin/Breast: Reports system reviewed and no additional complaints, except as documented Neurologic Neurologic: Reports system reviewed and no additional complaints, except as documented Endocrine Endocrine: Reports system reviewed and no additional complaints, except as documented Hematologic/Lymphatic Henatologic/Lymphatic: Reports system reviewed and no additional complaints, except as documented Allergic/Immunologic Allergic/Immunologic: Reports system reviewed and no additional complaints, except as documented Physical Exam General General appearance: alert Comment: ill appearing Head Head exam: atraumatic and normocephalic Eye Eye exam: Present normal appearance Expanded ENT Exam External ear exam: Present normal external inspection Nose exam: Absent sinus tenderness Nasal speculum exam: Bilateral: normal Mouth exam: Present normal external inspection Teeth exam: Present normal inspection Throat exam: Present tonsillar erythema, tonsillomegaly and tonsillar exudate Comment: 3+ tonsils Neck Neck exam: Present lymphadenopathy Chest Chest inspection: Present normal inspection and symmetric chest wall rise Respiratory Respiratory exam: Present normal lung sounds bilaterally Cardiovascular Cardiovascular exam: Present regular rate, normal rhythm and normal heart sounds Abdominal Exam Abdominal exam: Present soft and normal bowel sounds Extremities Exam Extremities exam: Present normal inspection Back Exam Back exam: Present normal inspection Neurological Exam Neurological exam: Present alert and oriented X3 Psychiatric Psychiatric exam: Present normal affect and normal mood Skin Skin exam: Present warm, dry and intact Lymphatic Lymphatic Findings: no adenopathy Medical Decision Making Foster Inquiry Pt receiving controlled substance: No Foster was queried for this patient: No Vital Signs: 01/04/24 09:00 Temperature 97.8 F Temperature Source Oral Pulse Rate [Right Radial] 91 H Respiratory Rate 18 Blood Pressure [Right Arm] 148/92 H Blood Pressure Mean [Right Arm] 110 Blood Pressure Source [Right Arm] Automatic Cuff Blood Pressure Position [Right Arm] Sitting 02 Sat by Pulse Oximetry 97 Oxygen Delivery Method Room Air Lab Data Lab Results 01/04/24 09:18: Strep Scn Rapid Clinic Negative Orders (Tests/Meds): ORDERS Category Date Time Status Strep Screen Confirmation Stat Micro 01/04/24 09:18 Received
[2024-01-04 10:05] VITALS: BP 148/92; PULSE 91; RESP 18; TEMP 36.6; O2SAT 97
== END 2024-01-04 10:05 | disposition home or self-care (01) ==
PROVIDERS: Emergency Provider Nurse Practitioner Family; PCP Physician Assistant
DX: J02.9 Acute pharyngitis, unspecified (principal)
CPT/HCPCS: 87880; 99212; 99214; G0463

== ENCOUNTER 2024-01-25 13:25 | Emergency (ER) | payer OTHER, SELFPAY ==
[2024-01-25 13:35] VITALS: BP 141/98; PULSE 105; RESP 18; TEMP 36.8; O2SAT 96; BMI 52.0
--- NOTE | 2024-01-25 13:48 | ED_ITS ---
Discharge Plan Disposition Patient Disposition: Home, Self-Care Condition: Good Prescriptions Prescriptions: New azithromycin [Zithromax Z-Regino] 250 mg tablet See Rx Instructions .ROUTE .COMPLEX 5 Days Qty: 6 0RF Rx Instructions: For 250 mg dose pack: take 500 mg today (day 1), then 250 mg for 4 days (days 2-5) No Action metformin 500 mg tablet extended release 24 hr 500 mg PO DAILY Patient Comments: TAKE 1 TABLET BY MOUTH ONCE DAILY WITH BREAKFAST Referrals Follow up/Referrals: Josef Yung PA [Primary Care Provider] - See instructions Activity Restrictions/Add. Instructions Additional Instructions/Restrictions: *Monitor Temp, Over the counter Motrin or Tylenol as directed/as needed Tylenol every 4 hours and Motrin every 6 hours (as long as your family doctor has told you that you can take it) for fever or pain. and straight to ER if unable to lower temp less than 101.0 after medication given *Warm salt water gargles may help to soothe the throat *Throat Lozenges? *Warm fluids like tea with honey may help to soothe the throat? *Sleep elevated *Humidifier/Vaporizer Your throat swab was sent for culture. Those results are typically sent to your primary care. Be sure to follow up in 2-3 days with your family doctor/primary care physician if no improvement so they can review those result and treat if necessary. If you don?t have a primary care doctor, I recommend you get one but in the mean time, you will have to return to a walk in clinic Follow up IMMEDIATELY for new or worsening symptoms or no Noticeable improvement over the next 48-72 hours. 911 for difficulty breathing or swallowing Clinical Impressions Clinical Impression: Pharyngitis Instructions Patient Instructions: Sore Throat Discharge ED Provider: Jennifer Rapp [facility] General Stated complaint: sore throat, congestion, drainage, headache Mode of Arrival: Ambulatory Source of Information: Patient Limitations: No Limitations Time Seen by Provider: 01/25/24 13:48 Description of Symptoms (Recalled from Triage Doc. by RN): PATIENT C/O SORE THROAT, SWOLLEN TONSILS, RUNNY NOSE, CONGESTION AND HEADACHES THAT STARTED YESTERDAY HEENT Symptoms (Recalled from RN notes): Yes Resp Symptoms (Recalled from RN notes): No Skin Symptoms (Recalled from RN notes): No MS Symptoms (Recalled from RN notes): No Functional Status (Recalled from RN notes): WNL History of Present Illness Provider Complaint: Patient states that she has been having headache, sore throat, swollen tonsils, drainage in the back of her throat and sinus congestion/pressure States it has continued to get worse over the last couple of days so today when it was still bothering her she came in to get checked Related Data Home Medications Medication Instructions Recorded Confirmed metformin 500 mg tablet,extended 500 mg PO DAILY 10/18/23 01/04/24 release 24 hr Previous Rx's Medication Instructions Recorded azithromycin 250 mg tablet See Rx Instructions PO .COMPLEX 5 01/25/24 (Zithromax Z-Regino) days #6 tabs Allergies Allergy/AdvReac Type Severity Reaction Status Date / Time amoxicillin [From AUGMENTIN] Allergy Unknown STOMACH Verified 01/04/24 09:21 cephalexin [From KEFLEX] Allergy Unknown Verified 01/04/24 09:21 clavulanic acid Allergy Unknown STOMACH Verified 01/04/24 09:21 [From AUGMENTIN] Worker's Comp Is this a Worker's Comp case?: No [facility] Disclaimer: The information contained in this section may have been updated after the patient was seen, as this information can be updated by other users. Medical History (Updated 01/25/24 @ 13:52 by Jennifer Rapp APRN) Depression Anxiety Social History Smoking Status: Never smoker alcohol intake: never substance use type: denies use current occupational status: other Travel in the last 8 weeks: None ROS Obtained: Yes All systems reviewed & no additional complaints except as documented and Yes Systems reviewed as appropriate & no additional complaints except as documented Constitutional Constitutional: Reports system reviewed and no additional complaints, except as documented, Reports as per HPI and Reports headache(s) ENT Ears, Nose, Mouth, and Throat: Reports system reviewed and no additional complaints, except as documented, Reports as per HPI, Reports headache(s), Reports nasal congestion, Reports nasal discharge and Reports sore throat Cardiovascular Cardiovascular: Reports system reviewed and no additional complaints, except as documented and Reports as per HPI Respiratory Respiratory: Reports system reviewed and no additional complaints, except as documented and Reports as per HPI Gastrointestinal Gastrointestingal: Reports system reviewed and no additional complaints, except as documented and as per HPI Neurologic Neurologic: Reports headache(s) Physical Exam General General appearance: alert and in no apparent distress ENT ENT exam: Present mucous membranes moist Expanded ENT Exam Throat exam: Present tonsillar erythema and tonsillar exudate Respiratory Respiratory exam: Present normal lung sounds bilaterally; Absent respiratory distress or wheezes Cardiovascular Cardiovascular exam: Present regular rate and normal heart sounds Neurological Exam Neurological exam: Present alert, oriented X3 and normal gait Medical Decision Making Foster Inquiry Pt receiving controlled substance: No Foster was queried for this patient: No Vital Signs: 01/25/24 13:35 Temperature 98.2 F Temperature Source Oral Pulse Rate [Left Brachial] 105 H Respiratory Rate 18 Blood Pressure [Left Arm] 141/98 H Blood Pressure Mean [Left Arm] 112 Blood Pressure Source [Left Arm] Automatic Cuff Blood Pressure Position [Left Arm] Sitting 02 Sat by Pulse Oximetry 96 Oxygen Delivery Method Room Air Lab Data Lab results reviewed: Yes I reviewed the patient's lab results.
[2024-01-25 13:52] VITALS: BP 141/98; PULSE 105; RESP 18; TEMP 36.8; O2SAT 96
[2024-01-25 13:52] LABS: UTC Strep Screen (Rapid) Negative (Negative)
== END 2024-01-25 13:55 | disposition home or self-care (01) ==
PROVIDERS: Emergency Provider Nurse Practitioner; PCP Physician Assistant
DX: J02.9 Acute pharyngitis, unspecified (principal); R51.9 Headache, unspecified; R09.81 Nasal congestion; R09.82 Postnasal drip
CPT/HCPCS: 87880; 99212; 99214; G0463

== ENCOUNTER 2024-02-07 13:10 | Emergency (ER) | payer OTHER, SELFPAY ==
[2024-02-07 13:22] VITALS: BP 138/84; PULSE 100; RESP 14; TEMP 36.6; O2SAT 97; BMI 49.4
[2024-02-07 13:36] LABS: UTC Strep Screen (Rapid) Positive (Negative)
--- NOTE | 2024-02-07 13:50 | EXP.UTC ---
Discharge Plan Disposition Patient Disposition: Home, Self-Care Condition: Good Prescriptions Prescriptions: New clindamycin HCl 300 mg capsule 300 mg PO Q8H 10 Days Qty: 30 0RF methylprednisolone 4 mg Tablets,Dose Pack 4 mg PO DIRECTED 6 Days Qty: 21 0RF Rx Instructions: Take 1 pack as directed for 6 days kudansadcruxnox-xpautknft-WV [Bromfed DM] 2-30-10 mg/5 mL Syrup 5 ml PO Q6H PRN (Reason: Cough) Qty: 240 0RF No Action azithromycin [Zithromax Z-Regino] 250 mg tablet See Rx Instructions .ROUTE .COMPLEX 5 Days Qty: 6 0RF Rx Instructions: For 250 mg dose pack: take 500 mg today (day 1), then 250 mg for 4 days (days 2-5) metformin 500 mg tablet extended release 24 hr 1,000 mg PO DAILY Patient Comments: TAKE 1 TABLET BY MOUTH ONCE DAILY WITH BREAKFAST Referrals Follow up/Referrals: Josef Yung PA [Primary Care Provider] - See instructions Activity Restrictions/Add. Instructions Additional Instructions/Restrictions: Drink plenty of fluids. Take tylenol or ibuprofen for pain or fever. Take the medications as directed. Follow up with your regular doctor. GO TO THE ER FOR ANY WORSENING SYMPTOMS Throw your tooth brush away and get a new one. Clinical Impressions Clinical Impression: Strep throat Instructions Patient Instructions: Strep Throat, DI for Strep Throat, Clindamycin Print Language Print Language: Sammarinese Discharge ED Provider: Garcia Almendarez [facility] General Stated complaint: runny nose, headache and sore throat Mode of Arrival: Ambulatory Source of Information: Patient Limitations: No Limitations Time Seen by Provider: 02/07/24 13:50 Description of Symptoms (Recalled from Triage Doc. by RN): pt c/o congestion, ROMAN, nasal drainage and a sore throat. ongoing since 02/04 HEENT Symptoms (Recalled from RN notes): Yes Resp Symptoms (Recalled from RN notes): No Skin Symptoms (Recalled from RN notes): No MS Symptoms (Recalled from RN notes): No Functional Status (Recalled from RN notes): wnl Related Data Home Medications ?Medication ?Instructions ?Recorded ?Confirmed metformin 500 mg tablet,extended 1,000 mg PO DAILY 10/18/23 01/25/24 release 24 hr Previous Rx's ?Medication ?Instructions ?Recorded azithromycin 250 mg tablet See Rx Instructions PO .COMPLEX 5 01/25/24 (Zithromax Z-Regino) days #6 tabs mkcbbrgfhfngtdg-hzwxzbdgfiirxqw-KW 5 ml PO Q6H PRN Cough #240 mL 02/07/24 2 mg-30 mg-10 mg/5 mL oral syrup (Bromfed DM) clindamycin HCl 300 mg capsule 300 mg PO Q8H 10 days #30 caps 02/07/24 methylprednisolone 4 mg tablets in 4 mg PO DIRECTED 6 days #21 tabs 02/07/24 a dose pack Allergies Allergy/AdvReac Type Severity Reaction Status Date / Time amoxicillin [From AUGMENTIN] Allergy Unknown STOMACH Verified 02/07/24 13:33 cephalexin [From KEFLEX] Allergy Unknown Verified 02/07/24 13:33 clavulanic acid Allergy Unknown STOMACH Verified 02/07/24 13:33 [From AUGMENTIN] Worker's Comp Is this a Worker's Comp case?: No [facility] Disclaimer: The information contained in this section may have been updated after the patient was seen, as this information can be updated by other users. Medical History (Updated 02/07/24 @ 14:07 by Garcia Almendarez APRN) Depression Anxiety Social History Smoking Status: Never smoker alcohol intake: never substance use type: denies use current occupational status: other Travel in the last 8 weeks: None ROS Obtained: Yes All systems reviewed & no additional complaints except as documented Constitutional Constitutional: Reports chills and Reports fever(s) Eyes Eyes: Denies eye discharge ENT Ears, Nose, Mouth, and Throat: Reports as per HPI Cardiovascular Cardiovascular: Denies chest pain Respiratory Respiratory: Denies chest congestion and Reports cough Gastrointestinal Gastrointestingal: Reports nausea; Denies abdominal pain, constipation, cramping, diarrhea or vomiting Musculoskeletal Musculoskeletal: Denies arthralgias Integumentary/Breasts Skin/Breast: Denies rash Neurologic Neurologic: Denies paresthesias Physical Exam General General appearance: alert and in no apparent distress Head Head exam: atraumatic, normocephalic and normal inspection Eye Eye exam: Present normal appearance, PERRL and EOMI ENT ENT exam: Present mucous membranes moist and normal external ear exam Expanded ENT Exam TM/Canal exam: Bilateral TM: erythema and bulging Nose exam: Absent sinus tenderness Mouth exam: Present normal external inspection; Absent drooling Teeth exam: Present normal inspection Throat exam: Present tonsillar erythema, tonsillomegaly and tonsillar exudate Neck Neck exam: Present normal inspection, full ROM and trachea midline; Absent tenderness, meningismus or lymphadenopathy Chest Chest inspection: Present normal inspection and symmetric chest wall rise; Absent tenderness Respiratory Respiratory exam: Present normal lung sounds bilaterally; Absent respiratory distress, wheezes, stridor or accessory muscle use Cardiovascular Cardiovascular exam: Present regular rate and normal rhythm; Absent systolic murmur or diastolic murmur Abdominal Exam Abdominal exam: Present soft and normal bowel sounds; Absent distention, tenderness, guarding, rebound or rigidity Extremities Exam Extremities exam: Present normal inspection and normal capillary refill; Absent calf tenderness Back Exam Back exam: Present normal inspection and full ROM; Absent tenderness, CVA tenderness (R) or CVA tenderness (L) Neurological Exam Neurological exam: Present alert, oriented X3 and CN II-XII intact Psychiatric Psychiatric exam: Present normal affect and normal mood Skin Skin exam: Present warm, dry, intact and normal color Medical Decision Making Medical Records Medical records reviewed: No I reviewed the patient's medical records. Foster Inquiry Pt receiving controlled substance: No Vital Signs: 02/07/24 13:22 Temperature 97.9 F Temperature Source Oral Pulse Rate [Left] 100 H Respiratory Rate 14 Blood Pressure [Right Arm] 138/84 Blood Pressure Mean [Right Arm] 102 Blood Pressure Source [Right Arm] Automatic Cuff Blood Pressure Position [Right Arm] Sitting 02 Sat by Pulse Oximetry 97 Oxygen Delivery Method Room Air Lab Data Lab results reviewed: Yes I reviewed the patient's lab results. Lab Results 02/07/24 13:36: Strep Scn Rapid Clinic Positive A
[2024-02-07 14:16] VITALS: BP 138/84; PULSE 100; RESP 14; TEMP 36.6
== END 2024-02-07 14:17 | disposition home or self-care (01) ==
PROVIDERS: Emergency Provider Nurse Practitioner Family; PCP Physician Assistant
DX: J02.0 Streptococcal pharyngitis (principal); R51.9 Headache, unspecified
CPT/HCPCS: 87880; 99212; 99214; G0463

== ENCOUNTER 2024-03-04 15:26 | Emergency (ER) | payer OTHER, SELFPAY ==
--- NOTE | 2024-03-04 16:36 | EXP.UTC ---
Discharge Plan Disposition Patient Disposition: Home, Self-Care Condition: Good Prescriptions Prescriptions: New xigfilannfneudy-kkfiqhgvz-FI [Bromfed DM] 2-30-10 mg/5 mL Syrup 5 ml PO Q6H PRN (Reason: Cough) Qty: 240 0RF ondansetron 4 mg Tablet,Disintegrating 4 mg PO Q8H PRN (Reason: Nausea) Qty: 12 0RF No Action azithromycin [Zithromax Z-Regino] 250 mg tablet See Rx Instructions .ROUTE .COMPLEX 5 Days Qty: 6 0RF Rx Instructions: For 250 mg dose pack: take 500 mg today (day 1), then 250 mg for 4 days (days 2-5) clindamycin HCl 300 mg capsule 300 mg PO Q8H 10 Days Qty: 30 0RF methylprednisolone 4 mg Tablets,Dose Pack 4 mg PO DIRECTED 6 Days Qty: 21 0RF Rx Instructions: Take 1 pack as directed for 6 days rxfktkfquskcfvt-vfdcqzqny-ZQ [Bromfed DM] 2-30-10 mg/5 mL Syrup 5 ml PO Q6H PRN (Reason: Cough) Qty: 240 0RF metformin 500 mg tablet extended release 24 hr 1,000 mg PO DAILY Patient Comments: TAKE 1 TABLET BY MOUTH ONCE DAILY WITH BREAKFAST Referrals Follow up/Referrals: Josef Yung PA [Primary Care Provider] - See instructions Activity Restrictions/Add. Instructions Additional Instructions/Restrictions: Drink plenty of fluids. Take tylenol or ibuprofen for pain or fever. Take the medications as directed. Follow up with your regular doctor. GO TO THE ER FOR ANY WORSENING SYMPTOMS Clinical Impressions Clinical Impression: Acute viral syndrome, Exposure to 2019 novel coronavirus Instructions Patient Instructions: Coronavirus Disease 2019, Preventing the Spread of Coronavirus Discharge Instructions Print Language Print Language: Bolivian Discharge ED Provider: Garcia Almendarez [facility] General Stated complaint: Sore throat,cough,exposed to Covid wants test Time Seen by Provider: 03/04/24 16:36 History of Present Illness Provider Complaint: She states that for the past 2 days she has had malaise, chills, body aches, and a scratchy throat. She has been exposed to covid-19 in her home. Related Data Home Medications ?Medication ?Instructions ?Recorded ?Confirmed metformin 500 mg tablet,extended 1,000 mg PO DAILY 10/18/23 01/25/24 release 24 hr Previous Rx's ?Medication ?Instructions ?Recorded azithromycin 250 mg tablet See Rx Instructions PO .COMPLEX 5 01/25/24 (Zithromax Z-Regino) days #6 tabs ezegmdqxixtkdck-vlrnjetsqtypczg-TD 5 ml PO Q6H PRN Cough #240 mL 02/07/24 2 mg-30 mg-10 mg/5 mL oral syrup (Bromfed DM) clindamycin HCl 300 mg capsule 300 mg PO Q8H 10 days #30 caps 02/07/24 methylprednisolone 4 mg tablets in 4 mg PO DIRECTED 6 days #21 tabs 02/07/24 a dose pack exbwmkkhhygxdpq-lvzzbdbojhjsoum-TH 5 ml PO Q6H PRN Cough #240 mL 03/04/24 2 mg-30 mg-10 mg/5 mL oral syrup (Bromfed DM) ondansetron 4 mg disintegrating 4 mg PO Q8H PRN Nausea #12 tabs 03/04/24 tablet Allergies Allergy/AdvReac Type Severity Reaction Status Date / Time amoxicillin [From AUGMENTIN] Allergy Unknown STOMACH Verified 02/07/24 13:33 cephalexin [From KEFLEX] Allergy Unknown Verified 02/07/24 13:33 clavulanic acid Allergy Unknown STOMACH Verified 02/07/24 13:33 [From AUGMENTIN] [facility] Disclaimer: The information contained in this section may have been updated after the patient was seen, as this information can be updated by other users. Medical History (Updated 03/04/24 @ 16:49 by Garcia Almendarez APRN) Depression Anxiety Social History Smoking Status: Never smoker alcohol intake: never substance use type: denies use current occupational status: other Travel in the last 8 weeks: None ROS Obtained: Yes All systems reviewed & no additional complaints except as documented Constitutional Constitutional: Reports chills and Reports fever(s) Eyes Eyes: Denies eye discharge ENT Ears, Nose, Mouth, and Throat: Reports as per HPI Cardiovascular Cardiovascular: Nona
[2024-03-04 16:46] VITALS: BP 140/96; PULSE 91; RESP 20; TEMP 36.7; O2SAT 97; BMI 49.4
[2024-03-04 16:58] VITALS: BP 140/96; PULSE 91; RESP 20; TEMP 36.7; O2SAT 97
[2024-03-04 20:06] LABS: Adenovirus,PCR Not Detected (NotDetected); Bordetella Pertussis Not Detected (NotDetected); Chlamydophila Pneumoniae, PCR Not Detected (NotDetected); Coronavirus 19, PCR Not Detected (NotDetected); Coronavirus 229E Not Detected (NotDetected); Coronavirus NL63 Not Detected (NotDetected); Coronavirus OC43 Not Detected (NotDetected); Coronovirus HKU1,PCR Not Detected (NotDetected); Human Metapneumovirus Not Detected (NotDetected); Influenza A, PCR Not Detected (NotDetected); Influenza AH1, 2009 Not Detected (NotDetected); Influenza AH1, PCR Not Detected (NotDetected); Influenza AH3,PCR Not Detected (NotDetected); Influenza B, PCR Not Detected (NotDetected); Mycoplasma Pneumoniae, PCR Not Detected (NotDetected); Parainfluenza 1, PCR Not Detected (NotDetected); Parainfluenza 2, PCR Not Detected (NotDetected); Parainfluenza 3, PCR Not Detected (NotDetected); Parainfluenza 4, PCR Not Detected (NotDetected); Respiratory Syncytial Virus Not Detected (NotDetected); Rhinovirus/Enterovirus Not Detected (NotDetected)
== END 2024-03-04 17:06 | disposition home or self-care (01) ==
PROVIDERS: Emergency Provider Nurse Practitioner Family; PCP Physician Assistant
DX: R05.9 Cough, unspecified; R07.0 Pain in throat; R53.81 Other malaise; Z20.822 Contact with and (suspected) exposure to COVID-19
CPT/HCPCS: 87581; 87632; 87635; 87798; 99212; 99214; G0463

== ENCOUNTER 2024-05-18 13:42 | Outpatient (CLI) | payer OTHER, SELFPAY ==
--- NOTE | 2024-05-18 13:45 | CT_ITS ---
FINAL REPORT TECHNIQUE: Thin section axial CT images of the facial bones and sinuses were obtained without contrast. Coronal reformatted images were also obtained.This study was performed with techniques to keep radiation doses as low as reasonably achievable, (ALARA). Individualized dose reduction techniques using automated exposure control or adjustment of mA and/or kV according to the patient''''s size were employed. CLINICAL HISTORY: DEVIATED SEPTUM AND CHRONIC SINUSITIS COMPARISON: None FINDINGS: There is no evidence of mucosal thickening. There is a left ariel bullosa. No fluid levels are identified. The ostiomeatal units have an unremarkable appearance. There is leftward nasal septal deviation with left-sided nasal septal spur. No fracture or acute bony abnormality is identified. IMPRESSION: Leftward nasal septal deviation with left-sided nasal septal spur. Left ariel bullosa. Reviewed, Interpreted and Dictated by Phillip Pierre III, MD Transcribed by Tavia Hall Authenticated and [facility]
== END 2024-05-18 23:59 | disposition home or self-care (01) ==
LOC: RAD 13:43
PROVIDERS: PCP Physician Assistant; Visit Provider Otolaryngology
DX: J34.2 Deviated nasal septum (principal); J32.9 Chronic sinusitis, unspecified
CPT/HCPCS: 70486

== ENCOUNTER 2024-07-03 10:35 | Emergency (ER) | payer OTHER, SELFPAY ==
[2024-07-03 11:20] VITALS: BP 146/92; PULSE 115; RESP 21; TEMP 37.7; O2SAT 98; BMI 50.5
[2024-07-03 11:35] LABS: UTC Strep Screen (Rapid) Positive (Negative)
--- NOTE | 2024-07-03 11:37 | ED_ITS ---
Discharge Plan Disposition Patient Disposition: Home, Self-Care Condition: Good Prescriptions Prescriptions: New azithromycin [Zithromax Z-Regino] 250 mg tablet See Rx Instructions .ROUTE .COMPLEX 5 Days Qty: 6 0RF Rx Instructions: For 250 mg dose pack: take 500 mg today (day 1), then 250 mg for 4 days (days 2-5) methylprednisolone [Medrol (Regino)] 4 mg tablets,dose pack See Rx Instructions .Route .COMPLEX 6 Days Qty: 21 0RF Rx Instructions: taper pack; No Action metformin 750 mg tablet extended release 24 hr 750 mg PO DAILY Patient Comments: TAKE 2 TABLETS BY MOUTH ONCE DAILY WITH BREAKFAST Referrals Follow up/Referrals: Josef Yung PA [Primary Care Provider] - See instructions Activity Restrictions/Add. Instructions Additional Instructions/Restrictions: *Monitor Temp, Over the counter Motrin or Tylenol as directed/as needed Tylenol every 4 hours and Motrin every 6 hours (as long as your family doctor has told you that you can take it) for fever or pain. and straight to ER if unable to lo wer temp less than 101.0 after medication given *Warm salt water gargles may help to soothe the throat *Throat Lozenges? *Warm fluids like tea with honey may help to soothe the throat? *Sleep elevated *Humidifier/Vaporizer *If you did not take Penicillin shot or was unable to, start taking antibiotic immediately and make sure that you take it for the FULL length of time although you should start to feel better in 24-48 hours *change toothbrush and toothpaste 24-48 hours after starting to take antibiotics so you do not reinfect yourself Monitor Temp. Tylenol and/or Ibuprofen as needed. ER if fever is no less than 101 despite alternating Tylenol and Ibuprofen * Encourage fluids, water, Gatorade, powerade, pedialyte if infant/toddler/or child *Cold fluids, popsicles and ice cream may feel good on his throat Follow up IMMEDIATELY for new or worsening symptoms or no Noticeable improvement over the next 48-72 hours. 911 for difficulty breathing or s wallowing Clinical Impressions Clinical Impression: Strep throat Instructions Patient Instructions: DI for Strep Throat, Strep Throat Print Language Print Language: Romanian Discharge ED Provider: Jennifer Rapp [facility] HPI General Stated complaint: sore throat, headache, fever Mode of Arrival: Ambulatory Source of Information: Patient Limitations: No Limitations Time Seen by Provider: 07/03/24 11:37 Description of Symptoms (Recalled from Triage Doc. by RN): PATIENT C/O SWOLLEN TONSILS, FEVER AND BODY ACHES THAT STARTED YESTERDAY MORNING HEENT Symptoms (Recalled from RN notes): Yes Resp Symptoms (Recalled from RN notes): No Skin Symptoms (Recalled from RN notes): No MS Symptoms (Recalled from RN notes): No Functional Status (Recalled from RN notes): WNL History of Present Illness Provider Complaint: Patient states that she started feeling bad yesterday with sore throat, swollen tonsils, headache and feeling achy States that she thinks she may have strep throat so she came in Related Data Home Medications ?Medication ?Instructions ?Recorded ?Confirmed metformin 750 mg tablet,extended 750 mg PO DAILY 07/03/24 07/03/24 release 24 hr Previous Rx's ?Medication ?Instructions ?Recorded azithromycin 250 mg tablet See Rx Instructions PO .COMPLEX 5 07/03/24 (Zithromax Z-Regino) days #6 tabs methylprednisolone 4 mg tablets in See Rx Instructions .Route 07/03/24 a dose pack (Medrol (Regino)) .COMPLEX 6 days #21 tabs Allergies Allergy/AdvReac Type Severity Reaction Status Date / Time amoxicillin (From AUGMENTIN) Allergy Unknown STOMACH Verified 06/08/24 14:55 cephalexin (From KEFLEX) Allergy Unknown Verified 06/08/24 14:55 clavulanic acid (From Allergy Unknown STOMACH Verified 06/08/24 14:55 AUGMENTIN) Worker's Comp Is this a Worker's Comp case?: No [facility] Disclaimer: The information contained in this section may have been updated after the patient was seen, as this information can be updated by other users. Medical History (Updated 07/03/24 @ 11:40 by Jennifer Rapp APRN) Nasal hypertrophy Chronic sinusitis Enlarged tonsils Deviated septum Depression Anxiety Social History Smoking Status: Former smoker tobacco type: cigarettes packs per day: 1 and e- cigarettes alcohol intake: never substance use type: denies use current occupational status: other Travel in the last 8 weeks: None Have you lived/traveled outside [place] in past 30 days?: No Contact w/someone who lives/traveled outside US past 30 days?: No Exposure to someone with infectious disease in past 14 days?: No Do you have a fever (greater than 100.4 F or 38 C)?: No Have you tested positive for COVID-19: No Exposed to someone with COVID-19 in past 14 days?: No Do you have a sore throat?: Yes Do you have a cough?: Yes Do you have any weakness?: No Do you have any diarrhea?: No Are you experiencing any unusual bleeding?: No Do you have any muscle aches/pain?: No Do you have any abdominal pain?: No Are you experiencing loss of taste or smell?: No ROS Obtained: Yes All systems reviewed & no additional complaints except as documented and Yes Systems reviewed as appropriate & no additional complaints except as documented Constitutional Constitutional: Reports system reviewed and no additional complaints, except as documented, Reports as per HPI, Reports body ache, Reports chills and Reports headache(s) ENT Ears, Nose, Mouth, and Throat: Reports system reviewed and no additional complaints, except as documented, Reports as per HPI, Reports headache(s), Reports nasal congestion and Reports sore throat Cardiovascular Cardiovascular: Reports system reviewed and no additional complaints, except as documented and Reports as per HPI Respiratory Respiratory: Reports system reviewed and no additional complaints, except as documented and Reports as per HPI Neurologic Neurologic: Reports headache(s) Physical Exam General General appearance: alert and in no apparent distress ENT ENT exam: Present mucous membranes moist Expanded ENT Exam Throat exam: Present tonsillar erythema and tonsillar exudate Respiratory Respiratory exam: Present normal lung sounds bilaterally; Absent respiratory distress or wheezes Cardiovascular Cardiovascular exam: Present regular rate, normal rhythm and normal heart sounds Abdominal Exam Abdominal exam: Present soft and normal bowel sounds; Absent distention or tenderness Neurological Exam Neurological exam: Present alert, oriented X3 and normal gait Medical Decision Making Medical Records Screening: Per USPSTF and CDC recommendations, given the prevalence of disease in our region, it is our hospital?s policy to screen for HIV and viral Hepatitis for all patients aged 18 and over and those with ongoing risk factors. Foster Inquiry Pt receiving controlled substance: No Foster was queried for this patient: No Vital Signs: 07/03/24 11:20 Temperature 99.8 F H Temperature Source Oral Pulse Rate [Left Brachial] 115 H Respiratory Rate 21 Blood Pressure [Left Arm] 146/92 H Blood Pressure Mean [Left Arm] 110 Blood Pressure Source [Left Arm] Automatic Cuff Blood Pressure Position [Left Arm] Sitting 02 Sat by Pulse Oximetry 98 Oxygen Delivery Method Room Air Lab Data Lab results reviewed: Yes I reviewed the patient's lab results. Lab Results 07/03/24 11:33: Strep Scn Rapid Clinic Positive A
[2024-07-03 11:42] VITALS: BP 146/92; PULSE 115; RESP 21; TEMP 37.7; O2SAT 98
== END 2024-07-03 11:44 | disposition home or self-care (01) ==
PROVIDERS: Emergency Provider Nurse Practitioner; PCP Physician Assistant
DX: J02.0 Streptococcal pharyngitis (principal)
CPT/HCPCS: 87880; 99213; G0381

== ENCOUNTER 2024-08-30 13:01 | Outpatient (CLI) | payer OTHER, SELFPAY ==
[2024-08-30 13:29] VITALS: BMI 49.4
[2024-08-30 13:39] LABS: Basophils % 0.4 % (0.1-2.0); Eosinophils # 0.2 K/mm3 (0.0-0.4); Eosinophils % 2.7 % (0.1-12.0); Hematocrit 37.4 % (37.0-47.0); Hemoglobin 12.2 g/dL (12.2-16.2); Lymphocytes # 2.3 K/mm3 (0.7-4.5); Lymphocytes % 28.5 % (10-50); Mean Corpuscular HGB Conc 32.6 g/dL (31.8-35.4); Mean Corpuscular Hemoglobin 26.1 pg (27.0-31.2); Mean Corpuscular Volume 79.9 fl (81-99); Mean Platelet Volume 9.2 fl (7.4-10.4); Monocytes # 0.6 K/mm3 (0.1-1.0); Neutrophils % 61.2 % (37.0-80.0); Platelet Count 321 K/mm3 (142-424); Red Blood Count 4.68 M/mm3 (4.20-5.40); Red Cell Distribution Width 13.7 % (11.5-17.5); White Blood Count 8.2 K/mm3 (4.8-10.8)
[2024-08-30 13:53] LABS: Anion Gap 12.3 mEq/L (5-15); Blood Urea Nitrogen 12 mg/dl (7-17); Calcium 9.1 mg/dl (8.4-10.2); Carbon Dioxide 25 mmol/L (22.0-30.0); Chloride 103 mmol/L (98-107); Creatinine Clearance Estimated 97 mL/min (50-200); Estimated Glomerular Filt Rate 102 ml/min (>60); GFR (African American) 123 ML/MIN (>60); Glucose 86 mg/dl (74-100); Potassium 4.3 mmoL/L (3.5-5.1); Sodium 136 mmol/L (136-145)
[2024-08-30 14:02] LABS: Urine Pregnancy, HCG Qual. Negative (Negative)
== END 2024-08-30 23:59 | disposition home or self-care (01) ==
LOC: PREOP 13:02
PROVIDERS: Nurse Anesthetist, Certified Registered; Nurse Practitioner; PCP Physician Assistant; Visit Provider Otolaryngology
DX: J35.1 Hypertrophy of tonsils (principal)
CPT/HCPCS: 80048; 81025; 85025

== ENCOUNTER 2024-09-07 06:55 | Day surgery (SDC) | payer OTHER, SELFPAY ==
[2024-08-31 09:31] VITALS: BMI 49.4
[2024-09-07] VITALS (12 sets, daily range): BP systolic 118–182; BP diastolic 81–110; PULSE 87–97; RESP 14–18; TEMP 36–37; O2SAT 94–98
[2024-09-07 07:36] LABS: Urine Pregnancy, HCG Qual. Negative (Negative)
--- NOTE | 2024-09-07 08:08 | P.PNANES_ITS ---
[facility] Disclaimer: The information contained in this section may have been updated after the patient was seen, as this information can be updated by other users. Medical History PCOS (polycystic ovarian syndrome) Nasal hypertrophy Chronic sinusitis Enlarged tonsils Deviated septum Depression Anxiety Surgical History No history of previous surgery Family History Other Family history of diabetes mellitus Family history of heart disease Social History Smoking Status: Former smoker tobacco type: cigarettes packs per day: 1 and e- cigarettes alcohol intake: never substance use type: denies use current occupational status: unemployed Travel in the last 8 weeks: None Have you lived/traveled outside [place] in past 30 days?: No Contact w/someone who lives/traveled outside US past 30 days?: No Exposure to someone with infectious disease in past 14 days?: No Do you have a fever (greater than 100.4 F or 38 C)?: No Have you tested positive for COVID-19: No Exposed to someone with COVID-19 in past 14 days?: No Do you have a sore throat?: No Do you have a cough?: No Do you have any weakness?: No Do you have any diarrhea?: No Are you experiencing any unusual bleeding?: No Do you have any muscle aches/pain?: No Do you have any abdominal pain?: No Are you experiencing loss of taste or smell?: No [facility] Anesthesia Checklist Patient Identification Patient Identification: Arm Band Structural Data Admitted From: Home Planned Operative Procedure/s: Tonsillectomy Consent for Planned Operative Procedure(s) Verified: Yes Verified Documents: Surgical Consent and History and Physical NPO Status Verified Time NPO: 00:00 Additional verifications Anesthesia Reactions: No Hx Blood Transfusions: No Blood Transfusion Reaction: No Airway Assessment Mallampati Score:: Class II C-Spine Mobility Assessed: Yes TMJ Mobility Assessed: Yes Dentition: Good Dentition Neurological Assessment Level of Consciousness: Awake, Alert and Appropriate Anesthesia Plan Anesthesia Risk discussed: Yes Anesthesia Plan: Verified ASA Class: III Anesthesia Type: General
[2024-09-07] MEDS: BUPIVACAINE 0.5% W/EPI 1:200,000 30ML VIAL 30 ML IJ (09:10)
[2024-09-07] MEDS: WHITE PETROLATUM 5GM UDP 5 GM TP (09:10)
--- NOTE | 2024-09-07 09:34 | EXP.OP.NOTE ---
Date of procedure: 09/07/24 Pre-op Diagnosis:: Chronic tonsillitis, tonsillar hypertrophy Post-op Diagnosis:: Chronic tonsillitis, tonsil hypertrophy, left tonsillar mass Procedure performed:: Tonsillectomy, biopsy of left tonsillar mass Surgeon:: Raj Smith MD HEATING ELEMENT WINDER:: Other Anesthesia: GETA Estimated blood loss (mL): 20 Operative findings:: 4+ enlarged inflamed tonsils bilaterally, small papillomatous looking mass at the mid pole of the left tonsil Operative note:: The patient was brought to the operating room and after adequate general anesthesia the mouth was draped in the usual sterile fashion and a McIvor mouthgag placed. Tonsillectomy was then performed in the plane defined by the tonsil capsule and superior constrictor and this was done with electrocautery. This was done bilaterally and then hemostasis established with suction Bovie. There was a small papillomatous looking lesion on the surface of the left tonsil and this was sent as a separate specimen. The procedure was concluded. All counts correct and blood loss minimal Condition: stable Disposition: PACU Complications:: No complications
[2024-09-07] MEDS: ACETAMINOPHEN 1,000 MG/100 ML ML 400 MG IV (10:22)
--- NOTE | 2024-09-08 12:49 | EXP.ANES.II ---
[facility] Anesthesia Record Part II Anesthesia Record Part II Discharge Time: 10:32 Destination: Surgical Day Care (OP Surgery) PACU nurse assessment reviewed?: Yes Patient Condition:: Good Anesthesia Complications:: None Swallowing reflex intact?: Yes Airway Patency: Patent Cyanosis?: No Blood Pressure: 143/90 SaO2: 97 Respiratory Rate: 14 Pulse Rate: 88 Temperature: 96.8 F Mental Status: Alert & Oriented Pain level:: 5 Nausea and/or vomitting:: None Intake, IV Amount: 0 Hydration: Adequate
[2024-09-08 12:50] VITALS: BP 143/90; PULSE 88; RESP 14; TEMP 36; O2SAT 97
== END 2024-09-07 11:40 | disposition home or self-care (01) ==
PROVIDERS: Nurse Practitioner; PCP Physician Assistant; Visit Provider Otolaryngology
PROC: (CPT 42800; principal; 2024-09-07 08:30)
DX: J35.01 Chronic tonsillitis (principal); C09.9 Malignant neoplasm of tonsil, unspecified
CPT/HCPCS: 42800; 42826; 81025; J3490; J0131; J1100; J2250; J2405; J3010

== ENCOUNTER 2024-10-17 17:25 | Emergency (ER) | payer OTHER, SELFPAY ==
--- NOTE | 2024-10-17 17:36 | XR_ITS ---
PROCEDURE INFORMATION: Exam: XR Chest Exam date and time: 10/17/2024 6:20 PM Age: 24 years old Clinical indication: Shortness of breath; Additional info: Shortness of air, cough, congestion TECHNIQUE: Imaging protocol: Radiologic exam of the chest. Views: 1 view. COMPARISON: CR XR CHEST 2V 03/14/2022 7:27 PM FINDINGS: Lungs: Unremarkable. No consolidation. Pleural spaces: Unremarkable. No pleural effusion. No pneumothorax. Heart/Mediastinum: Unremarkable. No cardiomegaly. Bones/joints: Unremarkable. IMPRESSION: No acute findings.
[2024-10-17 17:37] VITALS: BP 156/60; PULSE 119; RESP 18; TEMP 37.7; O2SAT 99; BMI 47.5
--- NOTE | 2024-10-17 17:37 | ED_ITS ---
Discharge Plan Disposition Patient Disposition: Home, Self-Care Condition: Good Prescriptions Prescriptions: No Action ondansetron 8 mg tablet,disintegrating 8 mg PO Q8H PRN (Reason: nausea and vomiting) Qty: 14 0RF metformin 750 mg tablet extended release 24 hr 750 mg PO DAILY Patient Comments: TAKE 2 TABLETS BY MOUTH ONCE DAILY WITH BREAKFAST Referrals Follow up/Referrals: Josef Yung PA [Primary Care Provider] - See instructions Activity Restrictions/Add. Instructions Additional Instructions/Restrictions: Turn to the emergency department any worsening signs or symptoms to include chest pain shortness of breath, nausea vomiting abdominal pain, utilize [id number] cold and flu medications ibuprofen Tylenol as needed for symptomatic relief. Follow-up with primary care provider. Clinical Impressions Clinical Impression: Acute viral syndrome Instructions Patient Instructions: DI for Viral Upper Respiratory Infection -- Adult Print Language Print Language: Japanese Discharge ED Provider: Alexandru Quintana General Adult HPI <ZARIA Lane - Last Filed: 10/17/24 19:06> General Chief complaint: Upper Respiratory Infection Stated complaint: Fever 103,cough,dizziness,body aches Time Seen by Provider: 10/17/24 17:27 Mode of Arrival: Ambulatory Source of Information: Patient Limitations: No Limitations History of Present Illness HPI narrative: 24-year-old female presents to the emergency department with a less than 1 day history of cough congestion, fever, Tmax at home was 103 ?F chills body aches, lightheaded and dizzy , patient states that she just woke up with it this morning , denies any real sore throat, patient does endorse recent sick contact being boyfriend who was sick 1 week ago with similar symptomatology. He denies any real sore throat, has had recent tonsillectomy back in August 2024, uncomplicated postoperative course. Patient denies any chest pain, does endorse shortness of breath with deep inspiration at times, denies any abdominal pain, nausea, vomiting, constipation, diarrhea, no urinary type symptomatology, no concern for at this time. Patient denies any history of tobacco use, no drug use and no other alcohol use. Patient has no other real relevant past medical history with the exception of PCOS for which she takes metformin for her at home, no history of OCP use.. Initial triage vitals notable for tachycardia, afebrile, SpO2 within normal limits. Onset (ago): hour(s) Related Data Home Medications ?Medication ?Instructions ?Recorded ?Confirmed metformin 750 mg tablet,extended 750 mg PO DAILY 07/03/24 09/21/24 release 24 hr Previous Rx's ?Medication ?Instructions ?Recorded ondansetron 8 mg disintegrating 8 mg PO Q8H PRN nausea and 09/07/24 tablet vomiting #14 tabs Allergies Allergy/AdvReac Type Severity Reaction Status Date / Time amoxicillin (From AUGMENTIN) Allergy Unknown STOMACH Verified 09/21/24 10:12 cephalexin (From KEFLEX) Allergy Unknown Verified 09/21/24 10:12 clavulanic acid (From Allergy Unknown STOMACH Verified 09/21/24 10:12 AUGMENTIN) [facility] <ZARIA Lane - Last Filed: 10/17/24 19:06> [facility] Disclaimer: The information contained in this section may have been updated after the patient was seen, as this information can be updated by other users. Medical History PCOS (polycystic ovarian syndrome) Nasal hypertrophy Chronic sinusitis Enlarged tonsils with recurrent strep Deviated septum Depression Anxiety Surgical History Status post tonsillectomy No history of previous surgery Family History Other Family history of diabetes mellitus Family history of heart disease Social History Smoking Status: Never smoker alcohol intake: never substance use type: denies use current occupational status: unemployed Travel in the last 8 weeks: None Have you lived/traveled outside [place] in past 30 days?: No Contact w/someone who lives/traveled outside [place] past 30 days?: No Exposure to someone with infectious disease in past 14 days?: No Do you have a fever (greater than 100.4 F or 38 C)?: No Have you tested positive for COVID-19: No Exposed to someone with COVID-19 in past 14 days?: No Do you have a sore throat?: No Do you have a cough?: No Do you have any weakness?: No Do you have any diarrhea?: No Are you experiencing any unusual bleeding?: No Do you have any muscle aches/pain?: No Do you have any abdominal pain?: No Are you experiencing loss of taste or smell?: No Other Medical History Have you received the Flu Vaccine for this season: Yes Have you received the Pneumonia Vaccine: No <ZARIA Lane - Last Filed: 10/17/24 19:06> ROS Obtained: Yes All systems reviewed & no additional complaints except as documented Physical Exam <ZARIA Lane - Last Filed: 10/17/24 19:06> General General appearance: alert and in no apparent distress Head Head exam: atraumatic and normocephalic Eye Eye exam: Present PERRL and EOMI ENT ENT exam: Present normal oropharynx, mucous membranes moist and other (No oropharyngeal erythema, no edema, tonsils are absent, uvula is midline.) Neck Neck exam: Present normal inspection Chest Chest inspection: Present normal inspection and symmetric chest wall rise Respiratory Respiratory exam: Present normal lung sounds bilaterally; Absent respiratory distress, wheezes, stridor or accessory muscle use Cardiovascular Cardiovascular exam: Present normal rhythm and tachycardia Abdominal Exam Abdominal exam: Present soft; Absent tenderness, guarding or rebound Extremities Exam Extremities exam: Present normal inspection Neurological Exam Neurological exam: Present alert and oriented X3 Psychiatric Psychiatric exam: Present normal affect Skin Skin exam: Present warm and dry Medical Decision Making <ZARIA Lane - Last Filed: 10/17/24 19:06> Medical Records Medical records reviewed: Yes I reviewed the patient's medical records. Screening: Per USPSTF and CDC recommendations, given the prevalence of disease in our region, it is our hospital?s policy to screen for HIV and viral Hepatitis for all patients aged 18 and over and those with ongoing risk factors. Foster Inquiry Pt receiving controlled substance: No Foster was queried for this patient: No Vital Signs: 10/17/24 17:37 10/17/24 19:13 Temperature 100 F H 99.5 F Temperature Source Oral Oral Pulse Rate 109 H Pulse Rate [Right] 119 H Respiratory Rate 18 18 Blood Pressure 171/92 H Blood Pressure [Right Arm] 156/60 H Blood Pressure Mean [Right Arm] 92 Blood Pressure Source Automatic Cuff Blood Pressure Source [Right Arm] Automatic Cuff Blood Pressure Position Sitting Blood Pressure Position [Right Arm] Supine 02 Sat by Pulse Oximetry 99 Oxygen Delivery Method Room Air Room Air Lab Data Lab Results 10/17/24 17:40: SARS-CoV-2 (PCR) Not detected, Influenza A Untype (PCR) Not detected, Influenza Type B (PCR) Not detected 10/17/24 18:04: Urine Color Yellow, Urine Appearance Clear, Urine pH 7.5, Ur Specific [place] 1.020, Urine Protein Negative, Urine Glucose (UA) Negative, Urine Ketones Negative, Urine Blood Negative, Urine Nitrate Negative, Urine Bilirubin Negative, Urine Urobilinogen 0.2, Ur Leukocyte Esterase Negative, Urine RBC Occasional, Urine WBC Occasional, Ur Squamous Epith Cells 3-5, Urine Bacteria 1+, Urine HCG, Qual Negative Orders (Tests/Meds): ED MEDICATIONS Discontinued Medications Generic Name Dose Route Start Last Admin Trade Name Freq PRN Reason Stop Dose Admin Acetaminophen 1,000 mg 10/17/24 17:48 10/17/24 18:05 Acetaminophen 500mg Tab PO 10/17/24 17:49 1,000 mg ONCE ONE Administration ORDERS Category Date Time Status XR chest portable Stat Exams 10/17/24 17:36 Completed Rapid PCR Covid and Flu A/B Stat Lab 10/17/24 17:40 Completed Urinalysis and Microscopic Stat Lab 10/17/24 18:04 Completed Urine , HCG Qual. Stat Lab 10/17/24 18:04 Completed Medical Decision Narrative: 24-year-old female presents to the emergency department with URI type symptomatology, differential diagnose include but not limited to, cardiac arrhythmia, acute URI, COVID-19, influenza, acute bronchitis, pneumonia. I discussed patient case with attending physician Will obtain COVID-19/influenza rapid antigen swab, will obtain EKG and chest x- ray for further evaluation, will obtain urinalysis and urine hCG qualitative, will give 1000 mg p.o. Tylenol for pain. Urine hCG qualitative is negative Urinalysis was grossly unremarkable. COVID-19 is negative, influenza AMB rapid antigen swabs are negative. I reviewed the patient's chest x-ray along the corresponding radiologic report, no acute findings. I discussed these results with the patient at the bedside, patient's tachycardia has improved, patient has not had any hypoxia here, Wells criteria negative, PERC criteria negative, no risk for PE at this time. Boyfriend had similar symptomatology last week. Patient was given very strict ED return precautions. Patient voiced understand agreement current treatment plan/discharge plan will follow-up with PCP as directed I recommend [id number] cold flu medications as well as ibuprofen and Tylenol for symptomatic relief with URI. <Alexandru Quintana MD - Last Filed: 10/17/24 21:39> Vital Signs: 10/17/24 17:37 10/17/24 19:13 Temperature 100 F H 99.5 F Temperature Source Oral Oral Pulse Rate 109 H Pulse Rate [Right] 119 H Respiratory Rate 18 18 Blood Pressure 171/92 H Blood Pressure [Right Arm] 156/60 H Blood Pressure Mean [Right Arm] 92 Blood Pressure Source Automatic Cuff Blood Pressure Source [Right Arm] Automatic Cuff Blood Pressure Position Sitting Blood Pressure Position [Right Arm] Supine 02 Sat by Pulse Oximetry 99 Oxygen Delivery Method Room Air Room Air Lab Data Lab Results 10/17/24 17:40: SARS-CoV-2 (PCR) Not detected, Influenza A Untype (PCR) Not detected, Influenza Type B (PCR) Not detected 10/17/24 18:04: Urine Color Yellow, Urine Appearance Clear, Urine pH 7.5, Ur Specific Uehling 1.020, Urine Protein Negative, Urine Glucose (UA) Negative, Urine Ketones Negative, Urine Blood Negative, Urine Nitrate Negative, Urine Bilirubin Negative, Urine Urobilinogen 0.2, Ur Leukocyte Esterase Negative, Urine RBC Occasional, Urine WBC Occasional, Ur Squamous Epith Cells 3-5, Urine Bacteria 1+, Urine HCG, Qual Negative Orders (Tests/Meds): ED MEDICATIONS Discontinued Medications Generic Name Dose Route Start Last Admin Trade Name Freq PRN Reason Stop Dose Admin Acetaminophen 1,000 mg 10/17/24 17:48 10/17/24 18:05 Acetaminophen 500mg Tab PO 10/17/24 17:49 1,000 mg ONCE ONE Administration ORDERS Category Date Time Status XR chest portable Stat Exams 10/17/24 17:36 Completed Rapid PCR Covid and Flu A/B Stat Lab 10/17/24 17:40 Completed Urinalysis and Microscopic Stat Lab 10/17/24 18:04 Completed Urine , HCG Qual. Stat Lab 10/17/24 18:04 Completed ECG Data Tracing #1: I reviewed this ECG and interpreted as documented below: (Sinus tachycardia 122 bpm with no acute ischemic change. Normal axis, no evidence of right heart strain, OH interval 135, QRS 90, QTc 376.) Medical Decision Narrative: 24-year-old female presents to the emergency department with URI type symptomatology, differential diagnose include but not limited to, cardiac arrhythmia, acute URI, COVID-19, influenza, acute bronchitis, pneumonia. I discussed patient case with attending physician Will obtain COVID-19/influenza rapid antigen swab, will obtain EKG and chest x- ray for further evaluation, will obtain urinalysis and urine hCG qualitative, will give 1000 mg p.o. Tylenol for pain. Urine hCG qualitative is negative Urinalysis was grossly unremarkable. COVID-19 is negative, influenza AMB rapid antigen swabs are negative. I reviewed the patient's chest x-ray along the corresponding radiologic report, no acute findings. I discussed these results with the patient at the bedside, patient's tachycardia has improved, patient has not had any hypoxia here, Wells criteria negative, PERC criteria negative, no risk for PE at this time. Boyfriend had similar symptomatology last week. Patient was given very strict ED return precautions. Patient voiced understand agreement current treatment plan/discharge plan will follow-up with PCP as directed I recommend [id number] cold flu medications as well as ibuprofen and Tylenol for symptomatic relief with URI. I was consulted by the TANG, and we discussed the complexity of the problems be ing addressed. I approved the treatment and management plan for this patient's care in the Emergency Department, thus performing a substantive portion of the medical decision making. Alexandru Quintana MD Critical Care <ZARIA Lane - Last Filed: 10/17/24 19:06> Critical Care Time Critical Care Time: No
--- NOTE | 2024-10-17 17:45 | PC.NURSE ---
Nursing assessment: Pt presents for evaluation of fever of 103 at home, bodyaches, and productive cough
[2024-10-17 17:47] LABS: Coronavirus 19, PCR Not Detected (NotDetected); Influenza A, PCR Not Detected (NotDetected); Influenza B, PCR Not Detected (NotDetected)
--- NOTE | 2024-10-17 18:02 | ECG_ITS ---
APPROVED REPORT Exam: Resting ECG HR:122 bpm ECG Measurements Heart Rate 122 AXES UT 135 P 31 QRSd 90 QRS 9 QT 304 T 22 QTc 376 Conclusion Sinus tachycardia Electronically signed by : VICKI STRONG, 10/17/2024 23:16:55
[2024-10-17] MEDS: ACETAMINOPHEN 500MG TAB 1000 MG PO (18:05)
[2024-10-17 18:07] LABS: Microscopic, Urine URINE MICROSCOPIC (MICROSCOPIC)
[2024-10-17 18:09] LABS: Appearance,Urine CLEAR (Clear); Bilirubin,Urine Negative (Negative); Blood, Urine Negative (Negative); Color,Urine YELLOW (Yellow); Glucose,Urine (UA) Negative (Negative); Ketones,Urine Negative (Negative); Leukocyte Esterase,Urine Negative (Negative); Nitrate,Urine Negative (Negative); PH,Urine 7.5 (5.0-8.5); Protein,Urine Negative (Negative); Urobilinogen,Urine 0.2 EU/dl (0.2)
[2024-10-17 18:10] LABS: Urine Pregnancy, HCG Qual. Negative (Negative)
[2024-10-17 19:13] VITALS: BP 171/92; PULSE 109; RESP 18; TEMP 37.5; O2SAT 95
[2024-10-17 20:06] LABS: Bacteria,Urine 1+ /lpf; RBC,Urine Occasional #/hpf (0-3); WBC,Urine Occasional #/hpf (0-3)
== END 2024-10-17 19:14 | disposition home or self-care (01) ==
PROVIDERS: Physician Assistant; Emergency Provider Emergency Medicine; PCP Physician Assistant
DX: B34.9 Viral infection, unspecified (principal); R50.9 Fever, unspecified; R05.9 Cough, unspecified; R09.81 Nasal congestion; R42 Dizziness and giddiness; Z20.828 Contact with and (suspected) exposure to other viral communicable diseases
CPT/HCPCS: 71045; 81001; 81025; 87636; 93005; 99284

== ENCOUNTER 2025-06-21 12:02 | Outpatient (CLI) | payer OTHER, SELFPAY ==
[2025-06-21 18:19] LABS: Coronavirus 19, PCR Not Detected (NotDetected); Influenza A, PCR Not Detected (NotDetected); Influenza B, PCR Not Detected (NotDetected)
== END 2025-06-21 23:59 | disposition home or self-care (01) ==
LOC: LAB.DROPOF 06-23 11:48
PROVIDERS: PCP Physician Assistant; Visit Provider Nurse Practitioner
DX: J06.9 Acute upper respiratory infection, unspecified (principal); J02.9 Acute pharyngitis, unspecified
CPT/HCPCS: 87070; 87631